=== PATIENT | female | born 1950 | race Caucasian/White ===

== ENCOUNTER 2018-05-29 05:58 | Inpatient (IN) | payer MEDICARE, OTHER ==
[~2018-05-29] VITALS: Ht 162.6 cm; Wt 121.6 kg
[2018-05-29] MEDS ORDERED: MIDAZOLAM 1 MG/ML, 2ML ONE (06:40)
[2018-05-29] MEDS ORDERED: FENTANYL PF 250 MCG/5ML ONE ×2 (06:40→08:16)
[2018-05-29] MEDS ORDERED: ROCURONIUM 10MG/ML,5ML ONE (06:46)
[2018-05-29] MEDS ORDERED: PROPOFOL 50 ML ONE (06:46)
[2018-05-29] MEDS ORDERED: PROPOFOL 10 MG/ML, 20ML ONE (06:46)
[2018-05-29] MEDS ORDERED: CEFAZOLIN 1,000 MG ONE (06:46)
[2018-05-29] MEDS ORDERED: DEXAMETHASONE 4 MG/ML, 1ML ONE (06:46)
[2018-05-29] MEDS ORDERED: GLYCOPYRROLATE 0.2MG/1ML, 5ML ONE (06:46)
[2018-05-29] MEDS ORDERED: NEOSTIGMINE 1 MG/ML, 10ML ONE (06:46)
[2018-05-29] MEDS ORDERED: ONDANSETRON 2MG/ML, 2ML ONE ×2 (06:46→11:22)
[2018-05-29 06:56] VITALS: BP 165/82
[2018-05-29] MEDS ORDERED: ACETAMINOPHEN 500 MG TABLET PO ONE (07:00)
[2018-05-29] MEDS ORDERED: GABAPENTIN 300 MG CAPSULE PO ONE (07:00)
[2018-05-29] MEDS ORDERED: VANCOMYCIN 500 MG ONE (07:02)
[2018-05-29] MEDS ORDERED: BUPIVACAINE/PF 0.25% ONE (07:02)
[2018-05-29] MEDS ORDERED: THROMBIN 5,000 UNIT VIAL TP ONE (07:02)
[2018-05-29] MEDS ORDERED: LIDOCAINE/PF 0.5% ,50ML ONE (07:02)
[2018-05-29] MEDS ORDERED: VANCOMYCIN 1,000 MG ONE (07:02)
[2018-05-29] MEDS ORDERED: BACITRACIN 50,000 UNIT ONE (07:03)
[2018-05-29] MEDS ORDERED: EPINEPHRINE 1 MG/ML, 1ML ONE (07:03)
[2018-05-29] MEDS ORDERED: LACTATED RINGERS 1,000 ML IV SCH (07:08)
[2018-05-29] MEDS ORDERED: HYDR-3307 PO (07:09)
[2018-05-29] MEDS ORDERED: LISI1TAB3 PO (07:09)
[2018-05-29] MEDS ORDERED: GABA300C10 PO (07:09)
[2018-05-29] MEDS ORDERED: ESCI20TA10 PO (07:09)
[2018-05-29] MEDS ORDERED: OXYcodone 5 MG/5 ML ORAL.SOL UDC ONE (09:59)
[2018-05-29] MEDS ORDERED: HYDROmorphone 2 MG/ML, 1ML ONE ×2 (09:59→10:49)
[2018-05-29] MEDS ORDERED: LABETALOL 5MG/ML, 20ML IV PRN (10:00)
[2018-05-29] MEDS ORDERED: LORazepam 2 MG/ML, 1ML IVPush PRN (10:00)
[2018-05-29] MEDS ORDERED: OXYcodone 5 MG/5 ML ORAL.SOL UDC PO PRN (10:00)
[2018-05-29] MEDS ORDERED: FENTANYL PF 100 MCG/2ML IV PRN (10:00)
[2018-05-29] MEDS ORDERED: PROMETHAZINE 25 MG SUPP PR PRN (10:00)
[2018-05-29] MEDS ORDERED: hydrALAzine 20 MG/ML, 1ML IV PRN (10:00)
[2018-05-29] MEDS ORDERED: MEPERIDINE/PF 25MG/0.5ML IVPush PRN (10:00)
[2018-05-29] MEDS ORDERED: ONDANSETRON 2MG/ML, 2ML IV PRN ×2 (10:00→12:30)
[2018-05-29] MEDS: HYDROmorphone 2 MG/ML, 1ML IVPush PRN ×6 (10:00→10:57)
[2018-05-29] MEDS ORDERED: DIAZEPAM 5 MG/ML, 2ML IVPush PRN (10:00)
[2018-05-29] MEDS ORDERED: PROMETHAZINE 25 MG/ML, 1ML IM PRN ×3 (10:00→12:30)
[2018-05-29] MEDS ORDERED: ONDANSETRON ODT 8 MG PO PRN (10:00)
[2018-05-29] MEDS ORDERED: MORPHINE SULFATE 4 MG/ML, 1ML IVPush PRN (10:00)
[2018-05-29] MEDS ORDERED: PROMETHAZINE 12.5 MG SUPP PR PRN (10:00)
[2018-05-29] MEDS ORDERED: PROMETHAZINE 25 MG/ML, 1ML IV PRN (10:00)
[2018-05-29 11:40] VITALS: BP 126/71
[2018-05-29] MEDS ORDERED: METHOCARBAMOL 1,000 MG in DEXTROSE 5% 100 ML IV ONE (12:00)
[2018-05-29] MEDS ORDERED: MAGNESIUM HYDROXIDE 8%, 30ML UDC PO PRN (12:30)
[2018-05-29] MEDS ORDERED: morphine SULFATE 10 MG/ML, 1ML IV PRN (12:30)
[2018-05-29] MEDS ORDERED: BISACODYL 10 MG SUPP PR PRN (12:30)
[2018-05-29 13:54] VITALS: BP 139/65
[2018-05-29] MEDS: CEFAZOLIN PMX 1GM/50ML 50 ML IVPB SCH (15:54)
[2018-05-29 17:22] LABS: MICROSCOPIC INDICATED
[2018-05-29 17:26] LABS: CULTURE INDICATED? NO
[2018-05-29] MEDS: D5%-0.9% NACL+KCL 20MEQ 1,000 ML IV SCH (20:16)
[2018-05-29] MEDS: METHOCARBAMOL 750 MG in DEXTROSE 5% 100 ML IV SCH (20:16)
[2018-05-29] MEDS: SENNA/DOCUSATE TABLET PO SCH (20:27)
[2018-05-29] MEDS: GABAPENTIN 300 MG CAPSULE PO SCH (20:27)
[2018-05-29] MEDS: HYDROcodone/APAP 5/325 TABLET PO PRN ×2 (20:30→21:36)
[2018-05-29 21:16] VITALS: BP 133/69
[2018-05-30 01:21] VITALS: BP 140/56
[2018-05-30] MEDS: CEFAZOLIN PMX 1GM/50ML 50 ML IVPB SCH (01:22)
[2018-05-30] MEDS: METHOCARBAMOL 750 MG in DEXTROSE 5% 100 ML IV SCH ×3 (04:10→22:03)
[2018-05-30 04:23] VITALS: BP 149/60
[2018-05-30] MEDS: D5%-0.9% NACL+KCL 20MEQ 1,000 ML IV SCH ×2 (05:30→15:30)
[2018-05-30 06:06] LABS: BASOPHILS # (AUTO) 0.03 x10^3/uL (0-0.1); BASOPHILS % (AUTO) 0 % (0-1); EOSINOPHILS % (AUTO) 0 % (1-7); LYMPHOCYTES # (AUTO) 1.66 x10^3/uL (1-3.4); LYMPHOCYTES % (AUTO) 18 % (22-44); MD NO; MEAN CORPUSCULAR HEMOGLOBIN 30.2 pg (27.0-34.8); MEAN CORPUSCULAR HGB CONC 34.9 g/dL (32.4-35.8); MEAN CORPUSCULAR VOLUME 86.6 fL (80-100); MEAN PLATELET VOLUME 7.9 fL (7.4-10.4); MONOCYTES # (AUTO) 0.85 x10^3/uL (0.2-0.8); MONOCYTES % (AUTO) 9 % (2-9); NEUTROPHILS # (AUTO) 6.62 x10^3/uL (1.8-6.8); NEUTROPHILS % (AUTO) 72 % (42-75); PLATELET COUNT 218 x10^3/uL (130-400); RED CELL DISTRIBUTION WIDTH 16.1 % (9.6-15.2)
[2018-05-30 06:13] LABS: ANION GAP 7 mmol/L (5-15); CALCIUM 8.7 mg/dL (8.5-10.1); CHLORIDE 105 mmol/L (98-107)
[2018-05-30 06:14] LABS: CREATININE 0.57 mg/dL (0.55-1.02)
[2018-05-30 06:40] VITALS: BP 139/61
[2018-05-30] MEDS: HYDROcodone/APAP 10/325 MG TABLET PO PRN ×4 (07:46→20:38)
[2018-05-30] MEDS: LISINOPRIL 10 MG TABLET PO SCH (08:32)
[2018-05-30] MEDS: CITALOPRAM 20 MG TABLET PO SCH (08:32)
[2018-05-30] MEDS: HYDROCHLOROTHIAZIDE 12.5 MG CAPSULE PO SCH (08:32)
[2018-05-30] MEDS: SENNA/DOCUSATE TABLET PO SCH ×2 (08:35→20:38)
[2018-05-30 12:58] VITALS: BP 115/53
[2018-05-30 18:49] VITALS: BP 123/58
[2018-05-30] MEDS: GABAPENTIN 300 MG CAPSULE PO SCH (20:38)
[2018-05-31 00:49] VITALS: BP 115/72
[2018-05-31] MEDS: HYDROcodone/APAP 10/325 MG TABLET PO PRN ×4 (01:11→13:01)
[2018-05-31] MEDS: D5%-0.9% NACL+KCL 20MEQ 1,000 ML IV SCH ×2 (01:30→11:30)
[2018-05-31 05:27] LABS: ANION GAP 5 mmol/L (5-15); CALCIUM 8.6 mg/dL (8.5-10.1); CHLORIDE 107 mmol/L (98-107); CREATININE 0.55 mg/dL (0.55-1.02)
[2018-05-31 05:37] LABS: BASOPHILS # (AUTO) 0.03 x10^3/uL (0-0.1); BASOPHILS % (AUTO) 0 % (0-1); EOSINOPHILS # (AUTO) 0.08 x10^3/uL (0-0.4); EOSINOPHILS % (AUTO) 1 % (1-7); LYMPHOCYTES # (AUTO) 2.29 x10^3/uL (1-3.4); LYMPHOCYTES % (AUTO) 34 % (22-44); MD NO; MEAN CORPUSCULAR HEMOGLOBIN 30.2 pg (27.0-34.8); MEAN CORPUSCULAR VOLUME 86.4 fL (80-100); MONOCYTES # (AUTO) 0.64 x10^3/uL (0.2-0.8); MONOCYTES % (AUTO) 9 % (2-9); NEUTROPHILS # (AUTO) 3.77 x10^3/uL (1.8-6.8); NEUTROPHILS % (AUTO) 55 % (42-75); PLATELET COUNT 180 x10^3/uL (130-400); RED BLOOD COUNT 3.57 x10^6/uL (3.82-5.3); RED CELL DISTRIBUTION WIDTH 15.8 % (9.6-15.2)
[2018-05-31] MEDS: METHOCARBAMOL 750 MG in DEXTROSE 5% 100 ML IV SCH ×2 (05:39→12:22)
[2018-05-31 08:21] VITALS: BP 116/53
[2018-05-31] MEDS: HYDROCHLOROTHIAZIDE 12.5 MG CAPSULE PO SCH (09:00)
[2018-05-31] MEDS: SENNA/DOCUSATE TABLET PO SCH (09:00)
[2018-05-31] MEDS: CITALOPRAM 20 MG TABLET PO SCH (09:02)
[2018-05-31] MEDS: LISINOPRIL 10 MG TABLET PO SCH (09:04)
[2018-05-31] MEDS ORDERED: METHOCARBAMOL 750 MG TABLET PO SCH (12:30)
[2018-05-31 13:58] VITALS: BP 118/62
== END 2018-05-31 13:30 | disposition home or self-care (01) | DRG 460 ==
LOC: ORIP 05:58 → 4NOR 11:42 → DCLOUNGE 05-31 13:15
PROVIDERS: ADMIT Orthopaedic Surgery Orthopaedic Surgery of the Spine; ATTEND Orthopaedic Surgery Orthopaedic Surgery of the Spine
PROC: 0T9B70Z Drainage of Bladder with Drainage Device, Via Natural or Artificial Opening (ICD-10-PCS; 2018-05-29)
PROC: 4A11X4G Monitoring of Peripheral Nervous Electrical Activity, Intraoperative, External Approach (ICD-10-PCS; 2018-05-29)
PROC: 0SB20ZZ Excision of Lumbar Vertebral Disc, Open Approach (ICD-10-PCS; 2018-05-29)
PROC: 0SG00A0 Fusion of Lumbar Vertebral Joint with Interbody Fusion Device, Anterior Approach, Anterior Column, Open Approach (ICD-10-PCS; principal; 2018-05-29 07:30)
PROC: 5A09357 Assistance with Respiratory Ventilation, Less than 24 Consecutive Hours, Continuous Positive Airway Pressure (ICD-10-PCS; 2018-05-30)
DX: M48.061 Spinal stenosis, lumbar region without neurogenic claudication (principal); Z68.42 Body mass index [BMI] 45.0-49.9, adult; M43.16 Spondylolisthesis, lumbar region; G89.29 Other chronic pain; E66.01 Morbid (severe) obesity due to excess calories; I10 Essential (primary) hypertension; F32.9 Major depressive disorder, single episode, unspecified; G47.30 Sleep apnea, unspecified; Z98.1 Arthrodesis status; Z90.49 Acquired absence of other specified parts of digestive tract; Z79.899 Other long term (current) drug therapy
CPT/HCPCS: 36415; 72100; 80048; 81001; 85025; C1713; C1767; G0378; J0171; J0690; J1100; J1170; J2001; J2250; J2405; J2704; J2710; J3010; J3360; J3370; J3490; C1760; C1762; J2270; J2800; J3480; J7120

== ENCOUNTER 2018-06-05 08:51 | Inpatient (IN) | payer MEDICARE, OTHER ==
[~2018-06-05] VITALS: Ht 162.6 cm; Wt 117.9 kg
[~2018-06-05 08:51] MED LIST: CEFAZOLIN 1,000 MG ONE; DEXAMETHASONE 4 MG/ML, 1ML ONE; ESCI20TA10 PO; FENTANYL PF 100 MCG/2ML IV PRN; FENTANYL PF 250 MCG/5ML ONE; GABA300C10 PO; GLYCOPYRROLATE 0.2MG/1ML, 5ML ONE; HYDR-3307 PO; HYDROmorphone 2 MG/ML, 1ML IVPush PRN; LABETALOL 5MG/ML, 20ML IV PRN; LISI1TAB3 PO; MEPERIDINE/PF 25MG/0.5ML IVPush PRN; MORPHINE SULFATE 4 MG/ML, 1ML IVPush PRN; NEOSTIGMINE 1 MG/ML, 10ML ONE; ONDANSETRON 2MG/ML, 2ML IV PRN; ONDANSETRON 2MG/ML, 2ML ONE; ONDANSETRON ODT 8 MG PO PRN; OXYcodone 5 MG/5 ML ORAL.SOL UDC PO PRN; PROMETHAZINE 12.5 MG SUPP PR PRN; PROMETHAZINE 25 MG SUPP PR PRN; PROMETHAZINE 25 MG/ML, 1ML IM PRN; PROMETHAZINE 25 MG/ML, 1ML IV PRN; PROPOFOL 10 MG/ML, 20ML ONE; ROCURONIUM 10MG/ML,5ML ONE; SUCCINYLCHOLINE 20 MG/ML, 10ML ONE; hydrALAzine 20 MG/ML, 1ML IV PRN
[2018-06-05 09:38] VITALS: BP 161/85
[2018-06-05] MEDS ORDERED: PROPOFOL 50 ML ONE (09:57)
[2018-06-05] MEDS ORDERED: LACTATED RINGERS 1,000 ML IV SCH (10:06)
[2018-06-05] MEDS ORDERED: OxyconTIN ER 10 MG TAB.ER ONE (10:16)
[2018-06-05] MEDS ORDERED: OxyconTIN ER 10 MG TAB.ER PO ONE (10:30)
[2018-06-05] MEDS ORDERED: LIDOCAINE/PF 0.5% ,50ML ONE (10:37)
[2018-06-05] MEDS ORDERED: EPINEPHRINE 1 MG/ML, 1ML ONE (10:37)
[2018-06-05] MEDS ORDERED: THROMBIN 5,000 UNIT VIAL TP ONE (10:37)
[2018-06-05] MEDS ORDERED: VANCOMYCIN 1,000 MG ONE (10:37)
[2018-06-05] MEDS ORDERED: BUPIVACAINE/PF 0.25% ONE (10:37)
[2018-06-05] MEDS ORDERED: KETAMINE 50 MG/ML, 10ML ONE (10:45)
[2018-06-05] MEDS ORDERED: ACETAMINOPHEN 325 MG TABLET PO PRN (11:00)
[2018-06-05] MEDS ORDERED: DIAZEPAM 5 MG/ML, 2ML IVPush PRN (11:00)
[2018-06-05] MEDS ORDERED: hydrALAzine 20 MG/ML, 1ML IV PRN (11:00)
[2018-06-05] MEDS ORDERED: PROMETHAZINE 25 MG/ML, 1ML IV PRN (11:00)
[2018-06-05] MEDS ORDERED: HYDROmorphone 2 MG/ML, 1ML IVPush PRN (11:00)
[2018-06-05] MEDS ORDERED: OXYcodone 5 MG/5 ML ORAL.SOL UDC PO PRN (11:00)
[2018-06-05] MEDS ORDERED: ONDANSETRON 2MG/ML, 2ML IV PRN ×2 (11:00→16:30)
[2018-06-05] MEDS ORDERED: ONDANSETRON ODT 8 MG PO PRN (11:00)
[2018-06-05] MEDS ORDERED: LIDOCAINE-MPF 2% ,5ML ONE ×4 (11:20)
[2018-06-05] MEDS ORDERED: MIDAZOLAM 1 MG/ML, 2ML ONE (11:20)
[2018-06-05] MEDS ORDERED: FENTANYL PF 250 MCG/5ML ONE (11:42)
[2018-06-05] MEDS ORDERED: SUGAMMADEX 200 MG/2 ML IVPush ONE (12:41)
[2018-06-05] MEDS ORDERED: FENTANYL PF 100 MCG/2ML ONE (14:22)
[2018-06-05] MEDS ORDERED: OXYcodone 5 MG/5 ML ORAL.SOL UDC ONE (14:22)
[2018-06-05] MEDS: FENTANYL PF 100 MCG/2ML IV PRN ×2 (14:24→14:34)
[2018-06-05] MEDS ORDERED: METHOCARBAMOL 1,000 MG in DEXTROSE 5% 100 ML IV ONE ×2 (14:30→17:00)
[2018-06-05] MEDS: LABETALOL 5MG/ML, 20ML IV PRN ×2 (14:34→14:54)
[2018-06-05] MEDS ORDERED: ONDANSETRON 2MG/ML, 2ML ONE (15:28)
[2018-06-05 16:10] VITALS: BP 131/64
[2018-06-05] MEDS ORDERED: morphine SULFATE 10 MG/ML, 1ML IV PRN (16:30)
[2018-06-05] MEDS ORDERED: DIPHENHYDRAMINE 50 MG/ML, 1ML IVPush PRN (16:30)
[2018-06-05] MEDS ORDERED: DIPHENHYDRAMINE 50 MG CAPSULE PO PRN (16:30)
[2018-06-05] MEDS ORDERED: HYDROcodone/APAP 5/325 TABLET PO PRN (16:30)
[2018-06-05] MEDS ORDERED: PROMETHAZINE 25 MG/ML, 1ML IM PRN (16:30)
[2018-06-05] MEDS ORDERED: DIPHENHYDRAMINE 50 MG/ML, 1ML IM PRN (16:30)
[2018-06-05] MEDS ORDERED: MAGNESIUM HYDROXIDE 8%, 30ML UDC PO PRN (16:30)
[2018-06-05] MEDS ORDERED: BISACODYL 10 MG SUPP PR PRN (16:30)
[2018-06-05] MEDS: D5%-0.9% NACL+KCL 20MEQ 1,000 ML IV SCH (17:55)
[2018-06-05] MEDS: CEFAZOLIN PMX 1GM/50ML 50 ML IVPB SCH (18:47)
[2018-06-05 19:40] VITALS: BP 130/56
[2018-06-05] MEDS: GABAPENTIN 300 MG CAPSULE PO SCH (20:50)
[2018-06-05] MEDS: SENNA/DOCUSATE TABLET PO SCH (20:50)
[2018-06-06 00:32] VITALS: BP 139/58
[2018-06-06] MEDS: METHOCARBAMOL 750 MG in DEXTROSE 5% 100 ML IV SCH ×3 (00:53→17:28)
[2018-06-06 02:50] VITALS: BP 136/55
[2018-06-06] MEDS: CEFAZOLIN PMX 1GM/50ML 50 ML IVPB SCH (03:02)
[2018-06-06 05:35] LABS: CALCIUM 8.8 mg/dL (8.5-10.1); CHLORIDE 107 mmol/L (98-107)
[2018-06-06 05:38] LABS: BASOPHILS # (AUTO) 0.01 x10^3/uL (0-0.1); BASOPHILS % (AUTO) 0 % (0-1); EOSINOPHILS # (AUTO) 0.01 x10^3/uL (0-0.4); EOSINOPHILS % (AUTO) 0 % (1-7); LYMPHOCYTES # (AUTO) 1.13 x10^3/uL (1-3.4); LYMPHOCYTES % (AUTO) 15 % (22-44); MD NO; MEAN CORPUSCULAR HGB CONC 34.4 g/dL (32.4-35.8); MEAN CORPUSCULAR VOLUME 87.3 fL (80-100); MEAN PLATELET VOLUME 7.8 fL (7.4-10.4); MONOCYTES # (AUTO) 0.71 x10^3/uL (0.2-0.8); MONOCYTES % (AUTO) 9 % (2-9); NEUTROPHILS % (AUTO) 76 % (42-75); PLATELET COUNT 278 x10^3/uL (130-400); RED BLOOD COUNT 3.69 x10^6/uL (3.82-5.3); RED CELL DISTRIBUTION WIDTH 15.9 % (9.6-15.2)
[2018-06-06 05:39] LABS: ANION GAP 6 mmol/L (5-15); CREATININE 0.51 mg/dL (0.55-1.02)
[2018-06-06] MEDS: D5%-0.9% NACL+KCL 20MEQ 1,000 ML IV SCH ×3 (05:49→22:30)
[2018-06-06 07:35] VITALS: BP 126/52
[2018-06-06] MEDS: HYDROCHLOROTHIAZIDE 12.5 MG CAPSULE PO SCH (08:38)
[2018-06-06] MEDS: LISINOPRIL 10 MG TABLET PO SCH (08:39)
[2018-06-06] MEDS: CITALOPRAM 20 MG TABLET PO SCH (08:39)
[2018-06-06] MEDS: SENNA/DOCUSATE TABLET PO SCH ×2 (08:39→21:33)
[2018-06-06] MEDS: HYDROcodone/APAP 10/325 MG TABLET PO PRN ×4 (08:50→21:32)
[2018-06-06 13:30] VITALS: BP 130/74
[2018-06-06] MEDS: HYDROCORTISONE CRM 1%, 30GM TP SCH ×2 (15:06→21:32)
[2018-06-06 20:33] VITALS: BP 117/70
[2018-06-06] MEDS: GABAPENTIN 300 MG CAPSULE PO SCH (21:32)
[2018-06-07] MEDS: METHOCARBAMOL 750 MG in DEXTROSE 5% 100 ML IV SCH ×2 (00:40→09:37)
[2018-06-07 01:24] VITALS: BP 132/65
[2018-06-07] MEDS: HYDROcodone/APAP 10/325 MG TABLET PO PRN ×2 (03:22→07:56)
[2018-06-07 06:02] LABS: BASOPHILS # (AUTO) 0.04 x10^3/uL (0-0.1); BASOPHILS % (AUTO) 1 % (0-1); EOSINOPHILS # (AUTO) 0.29 x10^3/uL (0-0.4); EOSINOPHILS % (AUTO) 4 % (1-7); LYMPHOCYTES % (AUTO) 30 % (22-44); MD NO; MEAN CORPUSCULAR HEMOGLOBIN 29.2 pg (27.0-34.8); MEAN CORPUSCULAR HGB CONC 33.4 g/dL (32.4-35.8); MEAN CORPUSCULAR VOLUME 87.4 fL (80-100); MEAN PLATELET VOLUME 7.6 fL (7.4-10.4); MONOCYTES # (AUTO) 0.63 x10^3/uL (0.2-0.8); MONOCYTES % (AUTO) 9 % (2-9); NEUTROPHILS % (AUTO) 56 % (42-75); PLATELET COUNT 257 x10^3/uL (130-400); RED BLOOD COUNT 3.58 x10^6/uL (3.82-5.3); RED CELL DISTRIBUTION WIDTH 15.9 % (9.6-15.2)
[2018-06-07 06:13] LABS: ANION GAP 5 mmol/L (5-15); CALCIUM 8.6 mg/dL (8.5-10.1); CHLORIDE 107 mmol/L (98-107); CREATININE 0.55 mg/dL (0.55-1.02)
[2018-06-07] MEDS: D5%-0.9% NACL+KCL 20MEQ 1,000 ML IV SCH (07:11)
[2018-06-07 07:37] VITALS: BP 134/76
[2018-06-07] MEDS: SENNA/DOCUSATE TABLET PO SCH (07:55)
[2018-06-07] MEDS: HYDROCHLOROTHIAZIDE 12.5 MG CAPSULE PO SCH (07:55)
[2018-06-07] MEDS: LISINOPRIL 10 MG TABLET PO SCH (07:56)
[2018-06-07] MEDS: CITALOPRAM 20 MG TABLET PO SCH (07:56)
[2018-06-07] MEDS: HYDROCORTISONE CRM 1%, 30GM TP SCH (07:57)
[2018-06-07 12:08] VITALS: BP 145/80
[2018-06-08] MEDS ORDERED: METHOCARBAMOL 750 MG TABLET PO SCH (01:00)
== END 2018-06-07 13:36 | disposition home or self-care (01) | DRG 460 ==
LOC: EDBD → ORIP 08:51 → 4NOR 15:45 → DCLOUNGE 06-07 13:16
PROVIDERS: ADMIT Orthopaedic Surgery Orthopaedic Surgery of the Spine; ATTEND Orthopaedic Surgery Orthopaedic Surgery of the Spine
PROC: 0SG0071 Fusion of Lumbar Vertebral Joint with Autologous Tissue Substitute, Posterior Approach, Posterior Column, Open Approach (ICD-10-PCS; principal; 2018-06-05 11:00)
DX: M48.061 Spinal stenosis, lumbar region without neurogenic claudication (principal); R71.0 Precipitous drop in hematocrit; Z68.41 Body mass index [BMI] 40.0-44.9, adult; M43.16 Spondylolisthesis, lumbar region; I10 Essential (primary) hypertension; G47.33 Obstructive sleep apnea (adult) (pediatric); F32.9 Major depressive disorder, single episode, unspecified; G89.29 Other chronic pain; G47.30 Sleep apnea, unspecified; E66.01 Morbid (severe) obesity due to excess calories; Z98.1 Arthrodesis status; Z79.899 Other long term (current) drug therapy; Z90.49 Acquired absence of other specified parts of digestive tract
CPT/HCPCS: 36415; 72100; 80048; 85025; C1767; G0378; J0171; J0690; J1100; J2001; J2250; J2270; J2405; J2704; J2710; J3010; J3370; J3490; J0330; J1200; J2800; J3480